=== PATIENT | male | born 1975 | race Caucasian/White ===

== ENCOUNTER 2024-11-09 10:53 | Observation (INO) | payer BC ==
--- NOTE | 2024-11-09 11:37 | ED ---
Abdominal Pain HPI <Vahe Palomares - Last Filed: 11/09/24 16:36> - General Source: patient, RN notes reviewed Mode of arrival: ambulatory Limitations: no limitations - History of Present Illness MD Complaint: abdominal pain <Lolis Mccall - Last Filed: 11/09/24 19:24> - General Chief Complaint: Abdominal Pain Stated Complaint: constipation, weakness Time Seen by Provider: 11/09/24 11:08 - History of Present Illness Initial Comments: This is a 49-year-old male who presents to the emergency department for constipation and abdominal pain. States that it started about 2 weeks ago. He has not had what he would consider a normal bowel movement in about 10 days. 3 to 4 days ago he started to become nauseous anytime he eats. Also reports generalized pain in the mid to lower abdomen. Denies any history of constipation like this in the past. He has tried [id number] medications without any relief. Patient noted to be hypoxic on room air in triage. Patient states that for the last 4 months he has been dealing with intermittent bouts of shortness of breath, but has never been evaluated for it or had his oxygen level checked. (Lolis Mccall) - Related Data Home Medications Medication Instructions Recorded Confirmed No Known Home Medications 11/09/24 11/09/24 Allergies Allergy/AdvReac Type Severity Reaction Status Date / Time No Known Allergies Allergy Verified 11/09/24 16:04 Review of Systems ROS Other: All systems not noted in ROS Statement are negative. <Vahe Palomares - Last Filed: 11/09/24 16:36> ROS Other: All systems not noted in ROS Statement are negative. <Lolis Mccall - Last Filed: 11/09/24 19:24> ROS Statement: Those systems with pertinent positive or pertinent negative responses have been documented in the HPI. Past Medical History Past Medical History: No Reported History History of Any Multi-Drug Resistant Organisms: None Reported Past Surgical History: Cholecystectomy Past Psychological History: No Psychological Hx Reported Smoking Status: Former smoker Past Alcohol Use History: None Reported Past Drug Use History: Marijuana <Lolis Mccall - Last Filed: 11/09/24 19:24> General Exam Limitations: no limitations General appearance: alert, in no apparent distress Head exam: Present: atraumatic, normocephalic, normal inspection Respiratory exam: Present: normal lung sounds bilaterally. Absent: respiratory distress, wheezes, rales, rhonchi, stridor Cardiovascular Exam: Present: regular rate, normal rhythm, normal heart sounds. Absent: systolic murmur, diastolic murmur, rubs, gallop, clicks GI/Abdominal exam: Present: soft, tenderness (generalized), normal bowel sounds. Absent: distended Neurological exam: Present: alert, oriented X3, CN II-XII intact Psychiatric exam: Present: normal affect, normal mood Skin exam: Present: warm, dry, intact, normal color. Absent: rash <Lolis Mccall - Last Filed: 11/09/24 19:24> Course Vital Signs 11/09/24 11/09/24 11/09/24 10:57 14:18 15:38 Temperature 97.5 F L Pulse Rate 95 73 84 Respiratory 16 18 16 Rate Blood Pressure 161/80 135/80 O2 Sat by Pulse 87 L 92 L Oximetry 11/09/24 11/09/24 11/09/24 15:48 16:21 17:49 Temperature Pulse Rate 85 76 81 Respiratory 18 18 20 Rate Blood Pressure 144/91 144/82 O2 Sat by Pulse 92 L 92 L Oximetry Medical Decision Making - Lab Data Result diagrams: 11/09/24 12:10 11/09/24 12:10 <Vahe Palomares - Last Filed: 11/09/24 16:36> - Lab Data Result diagrams: 11/09/24 17:46 11/09/24 17:46 - Radiology Data Radiology results: report reviewed, image reviewed <Lolis Mccall - Last Filed: 11/09/24 19:24> - Medical Decision Making This is a 49-year-old male who presents to the emergency department for abdominal pain and shortness of breath. Was pt. sent in by a medical professional or institution? @ -No Did you speak to anyone other than the patient for history? @ -No Did you review nursing and triage notes? @ -Yes, and I agree, it is accurate with regards to the patient's symptoms. Were old charts reviewed? @ -No Differential Diagnosis? @ -Differential Dyspnea: Coronary syndrome, arrhythmia, tamponade, asthma, COPD, pulmonary embolism, pneumonia, pneumothorax, pulmonary effusion, anaphylaxis, diabetic ketoacidosis, flailed chest, pulmonary contusion, diaphragmatic rupture, anemia, neuromuscular, this is not meant to be an all-inclusive list. EKG interpreted by me (3pts min.)? @ -EKG interpreted by me demonstrating the following: Sinus rhythm. Ventricular rate 81 bpm, IA interval 193 ms, QRS duration 91 ms, QTc 408 ms. X-rays interpreted by me (1pt min.)? @ -Chest x-ray obtained, my interpretation identifies no localized consolidations or infiltrates. KUB x-ray obtained. No interpretation identifies no dilation of the bowel loops. CT interpreted by me (1pt min.)? @ -CTA of the chest obtained. My interpretation identifies no evidence of a pulmonary embolus. U/S interpreted by me (1pt. min.)? @ -Not obtained What testing was considered but not performed? (CT, X-rays, U/S, labs)? Why? @ -CT scan of the abdomen and pelvis. However, patient would not fit in the CT scan machine. What meds were considered but not given? Why? @ -None Did you discuss the management of the patient with other professionals? @ -Yes, Dr. Mejia, who accepts the patient for admission. Did you reconcile home meds? @ -Yes Was smoking cessation discussed for >3mins.? @ -No Was critical care preformed (if so, how long)? @ -No Were there social determinants of health that impacted care today? How? (Homelessness, low income, unemployed, alcoholism, drug addiction, transportation, low edu. Level, literacy, decrease access to med. care, long-term, rehab)? @ -No Was there de-escalation of care discussed even if they declined? (Discuss DNR or withdrawal of care, Hospice)? @ -No What co-morbidities impacted this encounter? (DM, HTN, Smoking, COPD, CAD, Cancer, CVA, Hep., AIDS, mental health diagnosis, sleep apnea, morbid obesity)? @ -None Was patient admitted / discharged? @ -Admitted. On arrival patient had an oxygen saturation of 87% on room air, however he was not feeling particularly short of breath. Nasal cannula was subsequently applied. Lab work demonstrates mild leukocytosis. D-dimer elevated at 2.43. Chest x-ray and KUB x-ray obtained revealing no acute pr ocess. CTA of the chest that obtained due to his symptoms with elevated D- dimer. No evidence of a pulmonary embolus was identified, however evaluation was limited due to patient's body habitus. I had intended on getting a CT scan of the abdomen and pelvis as well due to his abdominal pain with constipation. However, he would not fit into the CT scan machine with his body habitus. The cause of his hypoxia is not entirely clear. ABG does suggest some retention. He has never been diagnosed with COPD, however that is a possibility. He is a previous smoker. Patient admitted to medicine for further evaluation and management of hypoxia. Consult placed for pulmonology. Case discussed with ED attending Dr. Avalos. Undiagnosed new problem with uncertain prognosis? @ -None Drug Therapy requiring intensive monitoring for toxicity (Heparin, Nitro, Insu jevon, Cardizem)? @ -None Were any procedures done? @ -None Diagnosis/symptom? @ -Hypoxia, constipation Acute, or Chronic, or Acute on Chronic? @ -Acute Uncomplicated (without systemic symptoms) or Complicated (systemic symptoms)? @ -Complicated Side effects of treatment? @ -None Exacerbation, Progression, or Severe Exacerbation] @ -Not applicable Poses a threat to life or bodily function? @ -Yes, can lead to respiratory failure and . (Lolis Mccall) - Lab Data Lab Results 11/09/24 11/09/24 11/09/24 Range/Units 12:10 12:10 12:10 WBC 12.3 H (3.8-10.6) k/uL RBC 5.82 (4.30-5.90) m/uL Hgb 16.8 (13.0-17.5) gm/dL Hct 54.5 H (39.0-53.0) % MCV 93.8 (80.0-100.0) fL MCH 28.9 (25.0-35.0) pg MCHC 30.8 L (31.0-37.0) g/dL RDW 15.7 H (11.5-15.5) % Plt Count 168 (150-450) k/uL MPV 7.8 Neutrophils % 82 % Lymphocytes % 10 % Monocytes % 5 % Eosinophils % 1 % Basophils % 0 % Neutrophils # 10.2 H (1.3-7.7) k/uL Lymphocytes # 1.3 (1.0-4.8) k/uL Monocytes # 0.7 (0-1.0) k/uL Eosinophils # 0.1 (0-0.7) k/uL Basophils # 0.0 (0-0.2) k/uL Hypochromasia Marked D-Dimer 2.43 H (<0.60) mg/L FEU Sample Site ABG pH (7.35-7.45) ABG pCO2 (35-45) mmHg ABG pO2 (83-108) mmHg ABG HCO3 (21-25) mmol/L ABG Total CO2 (19-24) mmol/L ABG O2 Saturation (94-97) % ABG Base Excess mmol/L Iker Test Hemoglobin (13.0-17.5) gm/dL FiO2 % Sodium 133 L (137-145) mmol/L Potassium 5.1 (3.5-5.1) mmol/L Chloride 96 L (98-107) mmol/L Carbon Dioxide 34 H (22-30) mmol/L Anion Gap 3 mmol/L BUN 28 H (9-20) mg/dL Creatinine 0.93 (0.66-1.25) mg/dL Est GFR (CKD-EPI)AfAm >90 (>60 ml/min/1.73 sqM) Est GFR (CKD-EPI)NonAf >90 (>60 ml/min/1.73 sqM) Glucose 97 (74-99) mg/dL Plasma Lactic Acid Ja (0.7-2.0) mmol/L Calcium 8.0 L (8.4-10.2) mg/dL Total Bilirubin 1.3 (0.2-1.3) mg/dL AST 46 (17-59) U/L ALT 112 H (4-49) U/L Alkaline Phosphatase 76 (38-126) U/L Troponin I (0.000-0.034) ng/mL Total Protein 6.1 L (6.3-8.2) g/dL Albumin 3.5 (3.5-5.0) g/dL Amylase 33 (30-110) U/L Lipase 109 (23-300) U/L Influenza Type A (PCR) (Not Detectd) Influenza Type B (PCR) (Not Detectd) RSV (PCR) (Not Detectd) SARS-CoV-2 (PCR) (Not Detectd) 01/01/0211/09/24 11/09/24 Range/Units 12:10 12:10 12:10 WBC (3.8-10.6) k/uL RBC (4.30-5.90) m/uL Hgb (13.0-17.5) gm/dL Hct (39.0-53.0) % MCV (80.0-100.0) fL MCH (25.0-35.0) pg MCHC (31.0-37.0) g/dL RDW (11.5-15.5) % Plt Count (150-450) k/uL MPV Neutrophils % % Lymphocytes % % Monocytes % % Eosinophils % % Basophils % % Neutrophils # (1.3-7.7) k/uL Lymphocytes # (1.0-4.8) k/uL Monocytes # (0-1.0) k/uL Eosinophils # (0-0.7) k/uL Basophils # (0-0.2) k/uL Hypochromasia D-Dimer (<0.60) mg/L FEU Sample Site ABG pH (7.35-7.45) ABG pCO2 (35-45) mmHg ABG pO2 (83-108) mmHg ABG HCO3 (21-25) mmol/L ABG Total CO2 (19-24) mmol/L ABG O2 Saturation (94-97) % ABG Base Excess mmol/L Iker Test Hemoglobin (13.0-17.5) gm/dL FiO2 % Sodium (137-145) mmol/L Potassium (3.5-5.1) mmol/L Chloride (98-107) mmol/L Carbon Dioxide (22-30) mmol/L Anion Gap mmol/L BUN (9-20) mg/dL Creatinine (0.66-1.25) mg/dL Est GFR (CKD-EPI)AfAm (>60 ml/min/1.73 sqM) Est GFR (CKD-EPI)NonAf (>60 ml/min/1.73 sqM) Glucose (74-99) mg/dL Plasma Lactic Acid Ja 1.1 (0.7-2.0) mmol/L Calcium (8.4-10.2) mg/dL Total Bilirubin (0.2-1.3) mg/dL AST (17-59) U/L ALT (4-49) U/L Alkaline Phosphatase (38-126) U/L Troponin I 0.024 (0.000-0.034) ng/mL Total Protein (6.3-8.2) g/dL Albumin (3.5-5.0) g/dL Amylase (30-110) U/L Lipase (23-300) U/L Influenza Type A (PCR) Not Detected (Not Detectd) Influenza Type B (PCR) Not Detected (Not Detectd) RSV (PCR) Not Detected (Not Detectd) SARS-CoV-2 (PCR) Not Detected (Not Detectd) 11/09/24 11/09/24 Range/Units 15:38 16:17 WBC (3.8-10.6) k/uL RBC (4.30-5.90) m/uL Hgb (13.0-17.5) gm/dL Hct (39.0-53.0) % MCV (80.0-100.0) fL MCH (25.0-35.0) pg MCHC (31.0-37.0) g/dL RDW (11.5-15.5) % Plt Count (150-450) k/uL MPV Neutrophils % % Lymphocytes % % Monocytes % % Eosinophils % % Basophils % % Neutrophils # (1.3-7.7) k/uL Lymphocytes # (1.0-4.8) k/uL Monocytes # (0-1.0) k/uL Eosinophils # (0-0.7) k/uL Basophils # (0-0.2) k/uL Hypochromasia D-Dimer (<0.60) mg/L FEU Sample Site r rad ABG pH 7.39 (7.35-7.45) ABG pCO2 61 H (35-45) mmHg ABG pO2 63 L (83-108) mmHg ABG HCO3 37 H (21-25) mmol/L ABG Total CO2 39 H (19-24) mmol/L ABG O2 Saturation 91.6 L (94-97) % ABG Base Excess 8.7 mmol/L Iker Test Yes Hemoglobin 16.6 (13.0-17.5) gm/dL FiO2 28 % Sodium (137-145) mmol/L Potassium (3.5-5.1) mmol/L Chloride (98-107) mmol/L Carbon Dioxide (22-30) mmol/L Anion Gap mmol/L BUN (9-20) mg/dL Creatinine (0.66-1.25) mg/dL Est GFR (CKD-EPI)AfAm (>60 ml/min/1.73 sqM) Est GFR (CKD-EPI)NonAf (>60 ml/min/1.73 sqM) Glucose (74-99) mg/dL Plasma Lactic Acid Ja (0.7-2.0) mmol/L Calcium (8.4-10.2) mg/dL Total Bilirubin (0.2-1.3) mg/dL AST (17-59) U/L ALT (4-49) U/L Alkaline Phosphatase (38-126) U/L Troponin I 0.020 (0.000-0.034) ng/mL Total Protein (6.3-8.2) g/dL Albumin (3.5-5.0) g/dL Amylase (30-110) U/L Lipase (23-300) U/L Influenza Type A (PCR) (Not Detectd) Influenza Type B (PCR) (Not Detectd) RSV (PCR) (Not Detectd) SARS-CoV-2 (PCR) (Not Detectd) Disposition <Vahe Palomares - Last Filed: 11/09/24 16:36> <Lolis Mccall - Last Filed: 11/09/24 19:24> Clinical Impression: Hypoxia, Constipation Disposition: ADMITTED IP TO THIS HOSP
[2024-11-09 12:29] LABS: Basophils % (A) 0 %; Eosinophils # (A) 0.1 k/uL (0-0.7); Eosinophils % (A) 1 %; HCT 54.5 % (39.0-53.0); HGB 16.8 gm/dL (13.0-17.5); Hypochromasia Marked; Lymphocytes # (A) 1.3 k/uL (1.0-4.8); Lymphocytes % (A) 10 %; MCH 28.9 pg (25.0-35.0); MCHC 30.8 g/dL (31.0-37.0); MCV 93.8 fL (80.0-100.0); Mean Platelet Volume 7.8; Monocytes # (A) 0.7 k/uL (0-1.0); Monocytes % (A) 5 %; Neutrophils # (A) 10.2 k/uL (1.3-7.7); Neutrophils % (A) 82 %; Platelet Count 168 k/uL (150-450); RBC 5.82 m/uL (4.30-5.90); RDW 15.7 % (11.5-15.5); WBC 12.3 k/uL (3.8-10.6)
[2024-11-09 12:33] LABS: ALT 112 U/L (4-49); AST 46 U/L (17-59); African American GFR (CKD) >90 (>60 ml/min/1.73 sqM); Albumin 3.5 g/dL (3.5-5.0); Alkaline Phosphatase 76 U/L (38-126); Amylase 33 U/L (30-110); Anion Gap 3 mmol/L; Blood Urea Nitrogen 28 mg/dL (9-20); Carbon Dioxide 34 mmol/L (22-30); Chloride 96 mmol/L (98-107); Glucose 97 mg/dL (74-99); Lipase 109 U/L (23-300); Non-African American GFR(CKD) >90 (>60 ml/min/1.73 sqM); Potassium 5.1 mmol/L (3.5-5.1); Sodium 133 mmol/L (137-145); Total Bilirubin 1.3 mg/dL (0.2-1.3); Total Protein 6.1 g/dL (6.3-8.2)
--- NOTE | 2024-11-09 13:03 | XR ---
EXAMINATION TYPE: XR chest 2V DATE OF EXAM: 11/09/2024 12:37 PM COMPARISON: None. CLINICAL INDICATION: Male, 49 years old with history of Hypoxia, TECHNIQUE: XR chest 2V view(s) obtained. FINDINGS: The heart size is normal. The pulmonary vasculature is normal. The lungs are clear. IMPRESSION: 1. No acute pulmonary process. [facility], , 11/09/2024 1:01 PM
--- NOTE | 2024-11-09 13:07 | XR ---
EXAMINATION TYPE: XR KUB DATE OF EXAM: 11/09/2024 12:36 PM COMPARISON: None. CLINICAL INDICATION: Male, 49 years old with history of Abdominal pain, constipation, TECHNIQUE: XR KUB view(s) obtained. FINDINGS: There is a normal bowel gas pattern. No free air is evident. No differential air-fluid levels are brad dent. No significant fecal retention Psoas margins are normal. No organomegaly is present. IMPRESSION: 1. Nonspecific abdomen [facility], , 11/09/2024 1:05 PM
--- NOTE | 2024-11-09 13:55 | CT ---
EXAMINATION TYPE: CT chest angio for PE CT DLP: 1169.9 mGycm, Automated exposure control for dose reduction was used. DATE OF EXAM: 11/09/2024 1:45 PM COMPARISON: Chest radiograph from same day. CLINICAL INDICATION:Male, 49 years old with history of RIZWAN, elevated d-dimer; RIZWAN, positive dimer TECHNIQUE/CONTRAST: CTA scan of the thorax is performed with IV Contrast, patient injected with 100 mL of Isovue 370, pul monary embolism protocol. MIP images are created and reviewed. FINDINGS: Limited examination due to patient body habitus. Pulmonary Artery: There is no evidence for a central filling defect within the pulmonary vasculature to suggest acute pulmonary embolism. Limited evaluation of the segmental and subsegmental branches se condary to bolus timing. The pulmonary artery is dilated measuring up to 4.0 cm. Lungs/Pleura: No evidence of focal consolidation, pleural effusion or pneumothorax. Minimal bilateral lower lobe dependent subsegmental atelectasis. Airway: Large airways are patent. Heart: The heart is mildly enlarged for size.. No pericardial effusion. Vasculature: No evidence of aortic aneurysm. Mediastinum: No gross evidence of adenopathy. Musculoskeletal: Mild degenerative disc disease changes are present throughout the thoracolumbar spin e. No acute osseous abnormality. Soft Tissues: Unremarkable. Lower neck: No significant findings. Upper Abdomen: Diffuse low-attenuation to the liver parenchyma. Surgical clips within the visualized gallbladder fossa. IMPRESSION: 1. No evidence of central pulmonary embolism. Limited evaluation of the segmental and subsegmental b ranches due to patient's body habitus. Consider nuclear medicine VQ scan if there is continuing clini janel concern. 2. Dilated main pulmonary suggestive of pulmonary hypertension. 3. Cardiomegaly. 4. Hepatic steatosis. [facility], , 11/09/2024 1:52 PM
[2024-11-09] MEDS: IPRATROPIUM-ALBUTEROL 3 ML NEB INHALATION STA (15:32)
[2024-11-09 15:42] LABS: ABG Base Excess 8.7 mmol/L; ABG HCO3 37 mmol/L (21-25); ABG Oxygen Saturation 91.6 % (94-97); ABG PCO2 61 mmHg (35-45); ABG PH 7.39 (7.35-7.45); ABG PO2 63 mmHg (83-108); ABG TCO2 39 mmol/L (19-24); Allen Test Performed? Yes
[2024-11-09] MEDS ORDERED: KETOROLAC 15 MG/ML 1 ML VIAL IVP PRN (16:12)
[2024-11-09] MEDS ORDERED: NALOXONE 0.4 MG/ML 1 ML VIAL IV PRN (16:12)
[2024-11-09] MEDS ORDERED: IBUPROFEN 400 MG TAB PO PRN (16:12)
[2024-11-09] MEDS ORDERED: ACETAMINOPHEN TAB 325 MG TAB PO PRN (16:12)
[2024-11-09] MEDS ORDERED: ONDANSETRON 4 MG/2 ML VIAL IVP PRN (16:12)
--- NOTE | 2024-11-09 16:57 | P.HPIM ---
History of Present Illness H&P Date: 11/09/24 Patient is a 49-year-old male with past medical history of obesity, cholecystectomy, who presents with concern of constipation and ongoing shortness of breath. Patient states that he does not have significant past medical history, he was told by his dentist that his blood pressure was elevated but no diagnosis of hypertension. He states that he has been constipated for the past several weeks, last BM 10 days ago, prior to that he has been having daily BMs. No pain with defecation, no blood in stool, no nausea, vomiting, abdominal discomfort is getting better. Shortness of breath has been ongoing for the past 4 months or so, he states that it gets worse when he smokes marijuana that he does daily, he used to smoke tobacco but quit 20 years ago. He has sedentary lifestyle, he gained 50 pounds in the past 1-1/2-year. He denies being diagnosed with hyperlipidemia or hypothyroidism or diabetes. He denies history of blood clots, including family history of blood clots, no pers onal cancer history., He did mention that he has bilateral lower extremity swelling left more than right. No autoimmune conditions as well. He also mentioned that he slept for 36 hours recently and did not feel refreshed, he was also falling asleep at work which is very concerning to him. In the ER patient was hypertensive BP 160/80, hypoxic 87% on room air, was placed on nasal cannula 2 L, heart rate initially elevated in the 90s, afebrile. Lab work significant for mild leukocytosis at 12.3, hemoglobin high normal 16.8, platelet count normal, D-dimer elevated 2.43, ABG with normal pH, hypercapnia and hypoxia pCO2 61, pO2 63, hyponatremic 133, normal creatinine and GFR, lactic acid normal, troponin negative. Viral panel negative. EKG showed sinus rhythm, RBBB pattern, no ST elevation. CTA chest was done and showed no evidence of central PE although evaluation was limited for the segmental and subsegmental branches, consider nuclear medicine VQ scan if continued clinical concern. Signs of pulmonary hypertension, cardiomegaly, hepatic steatosis. Abdominal x-ray showed no abnormalities. Patient is being admitted for evaluation of acute hypoxic hypercapnic respiratory failure, pulmonology consult, constipation evaluation. Pertinent positives and negatives as discussed in HPI, a complete review of systems was performed and all other systems are negative. Patient seen and examined at bedside. [] Vital signs reviewed General: nontoxic, no distress, appears at stated age, morbidly obese Derm: warm, dry Head: atraumatic, normocephalic, symmetric Eyes: EOMI, no lid lag, anicteric sclera, pupils equal round reactive to light ENT: Nose and ears atraumatic Neck: No thyromegaly, supple Mouth: no lip lesion, mucus membranes moist Cardiovascular: S1S2 reg, no murmur, no edema Lungs: clear to auscultation bilateral, no rhonchi, no rales, no wheeze, no accessory muscle use Abdominal: Exam limited due to body habitus, soft, nontender to palpation, no guarding, no appreciable organomegaly Ext: no gross muscle atrophy, muscle strength muscle strength 5 out of 5 in all 4 extremities, lateral lower extremity pitting edema Neuro: CN II-XII grossly intact Psych: Alert, oriented, appropriate affect Assessment/Plan: Acute hypoxic hypercapnic respiratory failure Concern for obesity hypoventilation syndrome Elevated D-dimer, CTA negative for central PE Lateral lower extremity edema, rule out DVT Morbid obesity BMI 43 Leukocytosis Hyponatremia -Pulmonology consulted -Bilateral lower extremity venous duplex -Workup for metabolic syndrome: A1c, lipid panel, TSH -TTE -BNP ordered and pending -1 dose of IV Lasix 40 once -Bipap, repeat ABG -Patient will need sleep study as outpatient -Recommend weight loss -Counseled on marijuana smoking cessation Constipation -Bowel sounds present, bowel regimen ordered -monitor BMP Elevated blood pressure readings without diagnosis of hypertension -Monitor blood pressure, patient is very likely to have hypertension, may need to be started on antihypertensive -Follow-up TTE The patient is admitted with an anticipated [greater] than 2 midnight stay as [inpatient/observation] status for evaluation of acute hypoxic hypercapnic respiratory failure, constipation]. DVT prophylaxis: lovenox Anticipated discharge date: 24 to [address] home A total of 40 minutes was spent on the care of this complex patient more than 50% of the time was spent in counseling and care coordination. Past Medical History Past Medical History: No Reported History History of Any Multi-Drug Resistant Organisms: None Reported Past Surgical History: Cholecystectomy Past Psychological History: No Psychological Hx Reported Smoking Status: Former smoker Past Alcohol Use History: None Reported Past Drug Use History: Marijuana Medications and Allergies Home Medications Medication Instructions Recorded Confirmed Type No Known Home Medications 11/09/24 11/09/24 History Allergies Allergy/AdvReac Type Severity Reaction Status Date / Time No Known Allergies Allergy Verified 11/09/24 16:04 Physical Exam Vitals: Vital Signs Temp Pulse Resp BP Pulse Ox 11/09/24 16:21 76 18 144/91 92 L 11/09/24 15:48 85 18 11/09/24 15:38 84 16 11/09/24 14:18 73 18 135/80 92 L 11/09/24 10:57 97.5 F L 95 16 161/80 87 L Intake and Output 11/09/24 11/09/24 11/09/24 06:59 14:59 22:59 Other: Weight 158.757 kg Results CBC & Chem 7: 11/09/24 12:10 11/09/24 12:10 Labs: Abnormal Lab Results - Last 24 Hours (Table) 11/09/24 11/09/24 11/09/24 Range/Units 12:10 12:10 12:10 WBC 12.3 H (3.8-10.6) k/uL Hct 54.5 H (39.0-53.0) % MCHC 30.8 L (31.0-37.0) g/dL RDW 15.7 H (11.5-15.5) % Neutrophils # 10.2 H (1.3-7.7) k/uL D-Dimer 2.43 H (<0.60) mg/L FEU ABG pCO2 (35-45) mmHg ABG pO2 (83-108) mmHg ABG HCO3 (21-25) mmol/L ABG Total CO2 (19-24) mmol/L ABG O2 Saturation (94-97) % Sodium 133 L (137-145) mmol/L Chloride 96 L (98-107) mmol/L Carbon Dioxide 34 H (22-30) mmol/L BUN 28 H (9-20) mg/dL Calcium 8.0 L (8.4-10.2) mg/dL ALT 112 H (4-49) U/L Total Protein 6.1 L (6.3-8.2) g/dL 11/09/24 Range/Units 15:38 WBC (3.8-10.6) k/uL Hct (39.0-53.0) % MCHC (31.0-37.0) g/dL RDW (11.5-15.5) % Neutrophils # (1.3-7.7) k/uL D-Dimer (<0.60) mg/L FEU ABG pCO2 61 H (35-45) mmHg ABG pO2 63 L (83-108) mmHg ABG HCO3 37 H (21-25) mmol/L ABG Total CO2 39 H (19-24) mmol/L ABG O2 Saturation 91.6 L (94-97) % Sodium (137-145) mmol/L Chloride (98-107) mmol/L Carbon Dioxide (22-30) mmol/L BUN (9-20) mg/dL Calcium (8.4-10.2) mg/dL ALT (4-49) U/L Total Protein (6.3-8.2) g/dL
[2024-11-09] MEDS: bisacodyL 5 MG TABLET.DR PO SCH (17:45)
[2024-11-09] MEDS: polyethylene glycoL 3350 17 GM POWD.PACK PO SCH (17:46)
--- NOTE | 2024-11-09 17:55 | US ---
EXAMINATION TYPE: US venous doppler duplex LE BI DATE OF EXAM: 11/09/2024 5:45 PM COMPARISON: CT and XR 11/09/24 CLINICAL INDICATION: Male, 49 years old with history of swelling, elevated D dimer; Patient states le g swelling, Pain TECHNIQUE: The lower extremity deep venous system is examined utilizing real time linear array sonog efrem with graded compression, color doppler sonography, and spectral doppler. SIDE PERFORMED: Bilateral FINDINGS: VESSELS IMAGED: Common Femoral Vein Deep Femoral Vein Greater Saphenous Vein * Femoral Vein Popliteal Vein Small Saphenous Vein * Proximal Calf Veins (* superficial vessels) Suboptimal exam due to patient body habitus Right Leg: Appears negative for dvt as best visualized, Color Doppler imaging shows patency of the v essels. Spectral waveforms are within normal limits. Left Leg: Appears negative for dvt as best visualized, Color Doppler imaging shows patency of the ve ssels. Spectral waveforms are within normal limits. *bilateral distal femoral vein difficult to compress, however color flow and spectral waveforms seen within IMPRESSION: No ultrasound evidence for deep venous thrombosis. [facility], , 11/09/2024 5:53 PM
[2024-11-09 18:14] LABS: Basophils % (A) 0 %; Eosinophils # (A) 0.1 k/uL (0-0.7); Eosinophils % (A) 1 %; HGB 17.1 gm/dL (13.0-17.5); Hypochromasia Marked; Lymphocytes # (A) 1.3 k/uL (1.0-4.8); Lymphocytes % (A) 11 %; MCH 29.3 pg (25.0-35.0); MCV 94.5 fL (80.0-100.0); Mean Platelet Volume 7.6; Monocytes # (A) 0.7 k/uL (0-1.0); Monocytes % (A) 6 %; Neutrophils # (A) 9.3 k/uL (1.3-7.7); Neutrophils % (A) 80 %; Platelet Count 146 k/uL (150-450); RBC 5.85 m/uL (4.30-5.90); RDW 15.7 % (11.5-15.5); WBC 11.6 k/uL (3.8-10.6)
[2024-11-09 18:25] LABS: African American GFR (CKD) >90 (>60 ml/min/1.73 sqM); Anion Gap 7 mmol/L; Blood Urea Nitrogen 24 mg/dL (9-20); Calcium 8.2 mg/dL (8.4-10.2); Carbon Dioxide 32 mmol/L (22-30); Chloride 95 mmol/L (98-107); Glucose 86 mg/dL (74-99); Non-African American GFR(CKD) 88 (>60 ml/min/1.73 sqM); Potassium 4.8 mmol/L (3.5-5.1); Sodium 134 mmol/L (137-145)
[2024-11-09 18:32] LABS: NT-Pro-B-Type Natriuretic Pept 3670 pg/mL
[2024-11-09 18:53] LABS: HCT 55.2 % (39.0-53.0)
--- NOTE | 2024-11-10 00:57 | P.CNPUL ---
History of Present Illness Consult date: 11/10/24 Requesting physician: Lolis Mccall Reason for consult: hypoxemia Chief complaint: Constipation History of present illness: Patient is a 49-year-old male without any known medical history and does not take any medications at home. He does not have a primary care provider. Lives in [place]. He presented to the emergency department last night with a chief complaint of constipation with associated abdominal discomfort. States his last normal bowel movement was approximately 2 weeks ago. Associated abdominal tenderness localized to the lower quadrants. Admits intermittent bouts of naus ea without emesis. While being triaged in the ED was noted to be hypoxic. SpO2 87% on room air oxygen. He was placed on 2 L/min nasal cannula. A pulmonary consult was placed for this reason. Chest x-ray showing normal cardiac silhouette, film is likely underpenetrated due to patient's body habitus. Patient had elevated D-dimer, CT angio protocol was performed which did not show any filling defects or evidence of pulmonary embolism. There was a dilated pulmonary trunk measuring 4 cm. No acute parenchymal process. Patient also reported unilateral left lower extremity swelling. Venous Doppler of the bilateral lower extremities unremarkable for DVT. CBC: WBC count 11.6, hemoglobin 17.1, hematocrit 55.2, platelets 146. CMP: Sodium 134, potassium 4.8, chloride 95, serum bicarb 32, BUN 24, creatinine 0.99, glucose 86. Troponins 0.02 and 0.018 respectively. NT proBNP was 3670. EKG: Normal sinus rhythm, incomplete RBBB pattern, no acute ischemic changes. Viral screen was negative for influenza, RSV, COVID. ABG drawn in the ED, showing a component hypoxia with likely chronic hypercapnic respiratory failure. The patient was placed on BiPAP earlier with settings 10/5 and FiO2 of 30%. On my initial evaluation, patient remains in the ED. Currently, he is on BiPAP with previous mention settings. Achieving tidal volumes of around 450, rate is nontachypneic. He is awake and alert. Nondistressed. No signs of CO2 narcosis. Patient states that over the last 4 months he has had exertional dyspnea. Carries brief tobacco smoking history, quit smoking over 20 years ago. He continues to smoke occasional marijuana. Denies history of COPD or asthma. Denies coughing. Denies infectious-like symptoms. Denies any chest pain, heart palpitations, orthopnea, PND. Endorses excessive daytime sleepiness. 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 He gets adequate amounts of sleep at night, over 8 hours, and remains tired on awakening. States he recently slept over 36 hours on his day off and still was tired on awakening. He lives alone, but has been told he has severe snoring. He is morbidly obese, with a BMI of 43.7 kg/m. Increased neck circumference. Mallampati score 3. Has never had a sleep study in the past. As stated above, he has noted some increased swelling of his left lower extremity. Denies any history of heart failure. As far as his constipation, he has received a dose of MiraLAX, had small bowel movement earlier. Abdominal tenderness is improved. Current vitals: Afebrile, heart rate 80 bpm, blood pressure 127/81 mmHg, respiratory rate nontachypneic, SpO2 93% on BiPAP Review of Systems Constitutional: Reports fatigue, Reports lethargy, Reports weight gain, Denies chills, Denies fever, Denies poor appetite, Denies weight loss Ears, nose, mouth and throat: Denies headache, Denies nasal congestion, Denies nasal discharge, Denies post-nasal drip, Denies sinus pain, Denies sinus pressure, Denies sore throat Cardiovascular: Reports leg edema, Denies chest pain, Denies lightheadedness, Denies orthopnea, Denies palpitations, Denies paroxysmal nocturnal dyspnea, Denies syncope Respiratory: Reports dyspnea, Reports snoring, Denies congestion, Denies cough, Denies hemoptysis, Denies respiratory infections, Denies sleep apnea, Denies wheezing Gastrointestinal: Reports abdominal pain, Reports change in bowel habits, Reports constipation, Reports nausea, Denies diarrhea, Denies loss of appetite, Denies vomiting Genitourinary: Denies dysuria Musculoskeletal: Denies limitation of motion Integumentary: Denies rash Neurological: Denies seizures, Denies syncope Psychiatric: Denies anxiety, Denies depression Past Medical History Past Medical History: No Reported History History of Any Multi-Drug Resistant Organisms: None Reported Past Surgical History: Cholecystectomy Past Psychological History: No Psychological Hx Reported Smoking Status: Former smoker Past Alcohol Use History: None Reported Past Drug Use History: Marijuana Medications and Allergies Home Medications Medication Instructions Recorded Confirmed Type No Known Home Medications 11/09/24 11/09/24 History Allergies Allergy/AdvReac Type Severity Reaction Status Date / Time No Known Allergies Allergy Verified 11/09/24 16:04 Physical Exam Vitals: Vital Signs Temp Pulse Resp BP Pulse Ox FiO2 11/09/24 23:54 80 93 L 11/09/24 23:17 30 11/09/24 22:00 75 18 127/81 92 L 11/09/24 21:23 84 18 134/95 93 L 11/09/24 19:39 77 20 136/90 92 L 11/09/24 17:49 81 20 144/82 92 L 11/09/24 16:21 76 18 144/91 92 L 11/09/24 15:48 85 18 11/09/24 15:38 84 16 11/09/24 14:18 73 18 135/80 92 L 11/09/24 10:57 97.5 F L 95 16 161/80 87 L Intake and Output 11/09/24 11/09/24 11/10/24 14:59 22:59 06:59 Other: Weight 158.757 kg GENERAL EXAM: Alert, morbidly obese 49-year-old male, on BiPAP, nondistressed, no signs of CO2 narcosis HEAD: Normocephalic and atraumatic EYES: Normal reaction of pupils, equal size. NOSE: Clear with pink turbinates. THROAT: No erythema or exudates. Mallampati score 3. NECK: No masses, no JVD. Increased neck circumference. CHEST: No chest wall deformity. LUNGS: Equal air entry with no crackles, wheeze, rhonchi or dullness. On BiPAP with settings 10/5 and FiO2 30%. Achieving tidal volumes of 450 mL, nontachypneic. No respiratory distress noted. No accessory muscle use. No conversational dyspnea. CVS: S1 and S2 normal with no audible murmur, regular rhythm. No extra heart sounds ABDOMEN: Obese abdomen, active bowel sounds, no hepatosplenomegaly or masses, no guarding or rigidity. SPINE: No scoliosis or deformity SKIN: No rashes CENTRAL NERVOUS SYSTEM: No focal deficits, tone is normal in all 4 extremities. EXTREMITIES: There is mild nonpitting lower extremity edema bilateral. No clubbing or cyanosis. Peripheral pulses are intact. Results - Laboratory Findings CBC and BMP: 11/09/24 17:46 11/09/24 17:46 ABG ABG pH 7.39 (7.35-7.45) 11/09/24 15:38 ABG pCO2 61 mmHg (35-45) H 11/09/24 15:38 ABG pO2 63 mmHg (83-108) L 11/09/24 15:38 ABG O2 Saturation 91.6 % (94-97) L 11/09/24 15:38 PT/INR, D-dimer D-Dimer 2.43 mg/L FEU (<0.60) H 11/09/24 12:10 Abnormal lab findings: Abnormal Labs 11/09/24 11/09/24 11/09/24 12:10 12:10 12:10 WBC 12.3 H Hct 54.5 H MCHC 30.8 L RDW 15.7 H Plt Count Neutrophils # 10.2 H D-Dimer 2.43 H ABG pCO2 ABG pO2 ABG HCO3 ABG Total CO2 ABG O2 Saturation Sodium 133 L Chloride 96 L Carbon Dioxide 34 H BUN 28 H Calcium 8.0 L ALT 112 H Total Protein 6.1 L 11/09/24 11/09/24 11/09/24 15:38 17:46 17:46 WBC 11.6 H Hct 55.2 H MCHC RDW 15.7 H Plt Count 146 L Neutrophils # 9.3 H D-Dimer ABG pCO2 61 H ABG pO2 63 L ABG HCO3 37 H ABG Total CO2 39 H ABG O2 Saturation 91.6 L Sodium 134 L Chloride 95 L Carbon Dioxide 32 H BUN 24 H Calcium 8.2 L ALT Total Protein - Diagnostic Findings Chest x-ray: image reviewed CT scan - chest: image reviewed Assessment and Plan Assessment: Acute hypoxemic respiratory failure, likely with a component of chronic hypercapnic respiratory failure; Chest x-ray showing normal cardiac silhouette with interstitial prominence, likely underpenetrated due to patient's body habitus. NT proBNP was elevated 3670 Elevated D-dimer, chest CTA did not show any filling defects consistent with pul monary embolism. Dilated pulmonary artery trunk measuring 4 cm. No acute parenchymal process. Bilateral lower extremity edema, venous doppler of the bilateral lower extremities unremarkable for DVTs Excessive daytime sleepiness Morbid obesity, BMI of 43.7 kg/m, suspect component of obesity hypoventilation syndrome/AUNG Abdominal pain and constipation, KUB x-ray nonspecific, patient was given dose of MiraLAX earlier with small bowel movement Brief history of tobacco use, quitting over 20 years ago Current ongoing marijuana use Plan: Patient's medications, labs, and imaging reviewed Found to be hypoxic when being triaged in the ED, placed on 2 L/min nasal cannula. ABG consistent with a component of chronic hypercapnic respiratory failure No signs of CO2 narcosis Continue BiPAP at bedtime, with current settings Patient would benefit from outpatient sleep study Echocardiogram planned for the morning We will continue to follow I have personally seen and examined the patient, performed the documentation and the assessment and plan as written. Number of minutes spent on the visit:20 This dictation was produced using [employer] dictation software please excuse grammatical errors Time with Patient: Greater than 30
[2024-11-10] MEDS: ENOXAPARIN 40 MG/0.4 ML SYRINGE SQ SCH (08:46)
[2024-11-10] MEDS: PANTOPRAZOLE 40 MG/10 ML VIAL IV SCH (08:48)
[2024-11-10 09:05] LABS: Blood Urea Nitrogen 18.2 mg/dL (9.0-27.0); Carbon Dioxide 31.5 mmol/L (21.6-31.8); Chloride 98 mmol/L (96-109); Glucose 87 mg/dL (70-110); Potassium 4.7 mmol/L (3.5-5.5); Sodium 140 mmol/L (135-145)
[2024-11-10 09:19] LABS: Basophils # (A) 0.03 X 10*3/uL (0.00-0.10); Basophils % (A) 0.3 %; Eosinophils # (A) 0.04 X 10*3/uL (0.04-0.35); Eosinophils % (A) 0.4 %; HCT 55.1 % (39.6-50.0); HGB 16.3 g/dL (13.0-17.0); Lymphocytes # (A) 1.26 X 10*3/uL (0.90-5.00); Lymphocytes % (A) 11.7 %; MCH 28.4 pg (27.0-32.0); MCHC 29.6 g/dL (32.0-37.0); Mean Platelet Volume 11.1 FL (9.5-12.2); Monocytes # (A) 1.09 X 10*3/uL (0.20-1.00); Monocytes % (A) 10.1 %; NRBC Per 100 WBC 0 X 10*3/uL (0.00-0.01); Neutrophils # (A) 8.32 X 10*3/uL (1.80-7.70); Neutrophils % (A) 77.1 %; Platelet Count 133 X 10*3/uL (140-440); RBC 5.74 X 10*6/uL (4.40-5.60); RDW 16.9 % (11.5-14.5); WBC 10.78 X 10*3/uL (4.50-10.00)
[2024-11-10 13:22] LABS: Appearance,Urine Clear (Clear); Bilirubin,Urine Negative (Negative); Blood,Urine Negative (Negative); Color,Urine Light Yellow; Glucose,Urine (UA) Negative (Negative); Ketones,Urine Negative (Negative); Leukocyte Esterase,Urine Negative (Negative); Nitrite,Urine Negative (Negative); Protein,Urine Negative (Negative); Specific Gravity,Urine 1.011 (1.001-1.035)
--- NOTE | 2024-11-10 13:48 | P.PN ---
Subjective Progress Note Date: 11/10/24 Principal diagnosis: Patient is a 49-year-old male with past medical history of obesity, cholecystectomy, who presents with concern of constipation and ongoing shortness of breath. Patient states that he does not have significant past medical history, he was told by his dentist that his blood pressure was elevated but no diagnosis of hypertension. He states that he has been constipated for the past several weeks, last BM 10 days ago, prior to that he has been having daily BMs. No pain with defecation, no blood in stool, no nausea, vomiting, abdominal discomfort is getting better. Shortness of breath has been ongoing for the past 4 months or so, he states that it gets worse when he smokes marijuana that he does daily, he used to smoke tobacco but quit 20 years ago. He has sedentary lifestyle, he gained 50 pounds in the past 1-1/2-year. He denies being diagnosed with hyperlipidemia or hypothyroidism or diabetes. He denies history of blood clots, including family history of blood clots, no personal cancer history., He did mention that he has bilateral lower extremity swelling left more than right. No autoimmune conditions as well. He also mentioned that he slept for 36 hours recently and did not feel refreshed, he was also falling asleep at work which is very concerning to him. In the ER patient was hypertensive BP 160/80, hypoxic 87% on room air, was placed on nasal cannula 2 L, heart rate initially elevated in the 90s, afebrile. Lab work significant for mild leukocytosis at 12.3, hemoglobin high normal 16.8, platelet count normal, D-dimer elevated 2.43, ABG with normal pH, hypercapnia and hypoxia pCO2 61, pO2 63, hyponatremic 133, normal creatinine and GFR, lactic acid normal, troponin negative. Viral panel negative. EKG showed sinus rhythm, RBBB pattern, no ST elevation. CTA chest was done and showed no evidence of central PE although evaluation was limited for the segmental and subsegmental branches, consider nuclear medicine VQ scan if continued clinical concern. Signs of pulmonary hypertension, cardiomegaly, hepatic steatosis. Abdominal x-ray showed no abnormalities. Patient is being admitted for evaluation of acute hypoxic hypercapnic respiratory failure Patient seen and examined. He expresses that he has slept better on the BiPAP. Awaiting results of TTE. No nausea vomiting reported Objective - Vital Signs Vital signs: Vital Signs Temp 97.8 F 11/10/24 08:41 Pulse 79 11/10/24 13:00 Resp 18 11/10/24 13:00 BP 136/92 11/10/24 13:00 Pulse Ox 96 11/10/24 13:00 FiO2 45 11/10/24 03:41 Intake & Output 11/09/24 11/10/24 11/10/24 18:59 06:59 18:59 Weight 158.757 kg - Exam General: nontoxic, no distress, appears at stated age, morbidly obese Derm: warm, dry Head: atraumatic, normocephalic, symmetric Eyes: EOMI, no lid lag, anicteric sclera, pupils equal round reactive to light ENT: Nose and ears atraumatic Neck: No thyromegaly, supple Mouth: no lip lesion, mucus membranes moist Cardiovascular: S1S2 reg, no murmur, no edema Lungs: clear to auscultation bilateral, no rhonchi, no rales, no wheeze, no accessory muscle use on nasal cannula Abdominal: Exam limited due to body habitus, soft, nontender to palpation, no guarding, no appreciable organomegaly Ext: no gross muscle atrophy, muscle strength muscle strength 5 out of 5 in all 4 extremities, lateral lower extremity pitting edema Neuro: All extremity spontaneously Psych: Alert, oriented, appropriate affect - Labs CBC & Chem 7: 11/10/24 03:13 11/10/24 03:13 Labs: Abnormal Lab Results - Last 24 Hours (Table) 11/09/24 11/09/24 11/09/24 Range/Units 15:38 17:46 17:46 WBC 11.6 H (3.8-10.6) k/uL RBC (4.40-5.60) X 10*6/uL Hct 55.2 H (39.0-53.0) % MCHC (32.0-37.0) g/dL RDW 15.7 H (11.5-15.5) % Plt Count 146 L (150-450) k/uL Neutrophils # 9.3 H (1.3-7.7) k/uL Monocytes # (0.20-1.00) X 10*3/uL ABG pCO2 61 H (35-45) mmHg ABG pO2 63 L (83-108) mmHg ABG HCO3 37 H (21-25) mmol/L ABG Total CO2 39 H (19-24) mmol/L ABG O2 Saturation 91.6 L (94-97) % Sodium 134 L (137-145) mmol/L Chloride 95 L (98-107) mmol/L Carbon Dioxide 32 H (22-30) mmol/L BUN 24 H (9-20) mg/dL Calcium 8.2 L (8.4-10.2) mg/dL 11/10/24 11/10/24 Range/Units 03:13 03:13 WBC 10.78 H (3.8-10.6) k/uL RBC 5.74 H (4.40-5.60) X 10*6/uL Hct 55.1 H (39.0-53.0) % MCHC 29.6 L (32.0-37.0) g/dL RDW 16.9 H (11.5-15.5) % Plt Count 133 L (150-450) k/uL Neutrophils # 8.32 H (1.3-7.7) k/uL Monocytes # 1.09 H (0.20-1.00) X 10*3/uL ABG pCO2 (35-45) mmHg ABG pO2 (83-108) mmHg ABG HCO3 (21-25) mmol/L ABG Total CO2 (19-24) mmol/L ABG O2 Saturation (94-97) % Sodium (137-145) mmol/L Chloride (98-107) mmol/L Carbon Dioxide (22-30) mmol/L BUN (9-20) mg/dL Calcium 8.0 L (8.4-10.2) mg/dL Assessment and Plan Assessment: Acute hypoxic hypercapnic respiratory failure Probable obesity hypoventilation syndrome DVT has been ruled out -Currently at this time the patient is requiring supplemental oxygen. I suspect this may be an degree from possible pulmonary hypertension versus his obesity hypoventilation syndrome. Continue supplemental oxygen to maintain SpO2 greater than 90%. His pCO2 was noted be 61. I am not entirely sure if the patient will be able to be qualified for BiPAP during this hospital stay however I would highly recommend a sleep study outpatient. Elevated BNP -Awaiting results of echocardiogram Time with Patient: Greater than 30
--- NOTE | 2024-11-10 18:44 | CA ---
Transthoracic Echo Report Name: Zain Lisa Age: 49 Gender: M : 1975 Exam Date: 11/10/2024 15:09 Exam Location: [facility] Ht (in): 75 Wt (lb): 350 Ordering Physician: Haven Goddard MD Attending/Referring Phys: Brand Lead Procedure CPT: Indications: eval systolic and diastolic function, pulm hypert Cardiac Hx: Technical Quality: Very technically difficult study Contrast 1: Definity Total Dose (mL): 1 Contrast 2: Total Dose (mL): MEASUREMENTS (Male / Female) Normal Values 2D ECHO LV Diastolic Diameter PLAX 4.9 cm 4.2 - 5.9 / 3.9 - 5.3 cm LV Systolic Diameter PLAX 3.4 cm IVS Diastolic Thickness 1.4 cm 0.6 - 1.0 / 0.6 - 0.9 cm LVPW Diastolic Thickness 1.4 cm 0.6 - 1.0 / 0.6 - 0.9 cm LV Relative Wall Thickness 0.6 LVOT Diameter 2.4 cm Aortic Root Diameter 3.3 cm Ascending Aorta Diameter 3.2 cm DOPPLER AV Peak Velocity 137.9 cm/s AV Peak Gradient 7.6 mmHg AV Mean Velocity 86.6 cm/s AV Mean Gradient 3.6 mmHg AV Velocity Time Integral 21.4 cm LVOT Peak Velocity 96.2 cm/s LVOT Peak Gradient 3.7 mmHg LVOT Velocity Time Integral 14.5 cm LVOT Stroke Volume 68.1 cm??? LVOT Stroke Volume Index 24.5 ml/m??? LVOT Cardiac Index 1790.8 cm???/min???m??? AV Area Cont Eq vti 3.2 cm??? AV Area Cont Eq pk 3.3 cm??? Mitral E Point Velocity 57.4 cm/s Mitral A Point Velocity 54.0 cm/s Mitral E to A Ratio 1.1 MV Deceleration Time 244.1 ms MV E' Velocity 5.8 cm/s Mitral E to MV E' Ratio 9.8 TR Peak Velocity 251.1 cm/s TR Peak Gradient 25.2 mmHg Right Atrial Pressure 20.0 mmHg Pulmonary Artery Systolic Pressu 45.2 mmHg Right Ventricular Systolic Press 45.2 mmHg PV Peak Velocity 115.4 cm/s PV Peak Gradient 5.3 mmHg FINDINGS Left Ventricle Left ventricular ejection fraction is estimated at 55-60 %. Moderately increased septal wall thickness. Left ventricular cavity size normal. No obvious regional wall motion abnormalities. Right Ventricle Right ventricular dilatation with normal function. Moderate pulmonary hypertension. Right Atrium Right atrium not well visualized. Left Atrium Left atrium not well visualized. Mitral Valve Mitral valve not well visualized. No mitral stenosis, regurgitation or prolapse. Aortic Valve Trileaflet aortic valve. No aortic valve stenosis or regurgitation. Tricuspid Valve Tricuspid valve not well visualized. No tricuspid stenosis, regurgitation or prolapse. Pulmonic Valve Pulmonic valve not well visualized. Pericardium No pericardial effusion. Aorta Normal size aortic root and proximal ascending aorta. CONCLUSIONS Technically difficult study for interpretation with poorly visualized endocardium and intracardiac valves Definity was used Normal LV systolic function Poorly visualized intracardiac valves No pericardial effusion Previewed by: Dr. Gallo Carrasco MD (Electronically Signed) Final Date: 10 November 2024 18:43
[2024-11-11 07:28] VITALS: RESP 18
[2024-11-11 10:18] LABS: Basophils # (A) 0.04 X 10*3/uL (0.00-0.10); Basophils % (A) 0.4 %; HCT 55.5 % (39.6-50.0); HGB 16.1 g/dL (13.0-17.0); Lymphocytes # (A) 1.26 X 10*3/uL (0.90-5.00); Lymphocytes % (A) 12.1 %; MCH 28.2 pg (27.0-32.0); MCV 97.2 FL (80.0-97.0); Mean Platelet Volume 10.5 FL (9.5-12.2); Monocytes # (A) 1.12 X 10*3/uL (0.20-1.00); Monocytes % (A) 10.7 %; NRBC Per 100 WBC 0 X 10*3/uL (0.00-0.01); Neutrophils # (A) 7.88 X 10*3/uL (1.80-7.70); Neutrophils % (A) 75.3 %; Platelet Count 137 X 10*3/uL (140-440); RBC 5.71 X 10*6/uL (4.40-5.60); RDW 16.3 % (11.5-14.5); WBC 10.45 X 10*3/uL (4.50-10.00)
[2024-11-11 10:36] LABS: BUN/Creat Ratio 13.73 Ratio (12.00-20.00); Blood Urea Nitrogen 15.1 mg/dL (9.0-27.0); Calcium 7.9 mg/dL (8.7-10.3); Carbon Dioxide 31.9 mmol/L (21.6-31.8); Chloride 100 mmol/L (96-109); Glucose 106 mg/dL (70-110); Potassium 5.1 mmol/L (3.5-5.5); Sodium 141 mmol/L (135-145)
--- NOTE | 2024-11-11 12:25 | P.DS ---
Providers Date of admission: 11/09/24 16:36 Attending physician: Christoph Mejia Consults: 11/09/24 16:12 Consult Physician Urgent Consulting Provider: Robinson Patel Consult Reason/Comments: Hypoxia Do you want consulting provider notified?: Yes Primary care physician: Stated None Hospital Course: Zain is a 49-year-old male with past medical history of obesity. He presented to hospital complaining of shortness of breath. In the ER he was noted to be hypoxic requiring 2 L of oxygen. Viral panel was negative CTA chest that revealed no evidence of PE. CTA did reveal hepatic steatosis. Bilateral lower extremity Dopplers were negative. He was trialed on a dose of IV Lasix. Echocardiogram revealed LVEF of 55 to 60% with RVSP noted to be 45 mmHg. The patient was unable to be weaned off oxygen. He was trialed on hospital BiPAP and he reported that he felt much better and no longer feel fatigued but unfortunately he will need an outpatient sleep study to get him evaluated for a BiPAP machine for his likely central sleep apnea. Assessment: Acute hypoxic hypercapnic respiratory failure Concern for obesity hypoventilation syndrome Elevated D-dimer, CTA negative for central PE Lateral lower extremity edema, DVT ruled out Morbid obesity BMI 43 Leukocytosis Hyponatremia -The patient was unable to be weaned off supplemental oxygen -TTE had revealed LVEF of 55 to 60% with RVSP noted to be 45 mmHg. Continue 2 L of oxygen. Would recommend outpatient sleep study to evaluate for likely central sleep apnea and consideration for obtaining a BiPAP then -Continue 2 L oxygen continuously -Cannabis cessation recommended Elevated blood pressure readings without diagnosis of hypertension -Monitor blood pressure, prior to treatment of blood pressure I would recommend his sleep apnea to be controlled prior Patient Condition at Discharge: Fair Plan - Discharge Summary Discharge Rx Participant: No New Discharge Prescriptions: No Action No Known Home Medications Discharge Medication List No Known Home Medications 11/09/24 [History] Follow up Appointment(s)/Referral(s): Robinson Patel DO [Doctor of Osteopathic Medicine] - 1 Week None,Stated [Primary Care Provider] - 1-2 days Discharge Disposition: HOME SELF-CARE
--- NOTE | 2024-11-11 13:07 | P.PN ---
Subjective Progress Note Date: 11/11/24 Patient is a 49-year-old male without any known medical history and does not take any medications at home. He does not have a primary care provider. Lives in [place]. He presented to the emergency department last night with a chief complaint of constipation with associated abdominal discomfort. States his last normal bowel movement was approximately 2 weeks ago. Associated abdominal tenderness localized to the lower quadrants. Admits intermittent bouts of nausea without emesis. While being triaged in the ED was noted to be hypoxic. SpO2 87% on room air oxygen. He was placed on 2 L/min nasal cannula. A pulmonary consult was placed for this reason. Chest x-ray showing normal cardiac silhouette, film is likely underpenetrated due to patient's body habitus. Patient had elevated D-dimer, CT angio protocol was performed which did not show any filling defects or evidence of pulmonary embolism. There was a dilated pulmonary trunk measuring 4 cm. No acute parenchymal process. Patient also reported unilateral left lower extremity swelling. Venous Doppler of the bilateral lower extremities unremarkable for DVT. CBC: WBC count 11.6, hemoglobin 17.1, hematocrit 55.2, platelets 146. CMP: Sodium 134, potassium 4.8, chloride 95, serum bicarb 32, BUN 24, creatinine 0.99, glucose 86. Troponins 0.02 and 0.018 respectively. NT proBNP was 3670. EKG: Normal sinus rhythm, incomplete RBBB pattern, no acute ischemic changes. Viral screen was negative for influenza, RSV, COVID. ABG drawn in the ED, showing a component hypoxia with likely chronic hypercapnic respiratory failure. The patient was placed on BiPAP earlier with settings 10/5 and FiO2 of 30%. On my initial evaluation, patient remains in the ED. Currently, he is on BiPAP with previous mention settings. Achieving tidal volumes of around 450, rate is nontachypneic. He is awake and alert. Nondistressed. No signs of CO2 narcosis. Patient states that over the last 4 months he has had exertional dyspnea. Carries brief tobacco smoking history, quit smoking over 20 years ago. He continues to smoke occasional marijuana. Denies history of COPD or asthma. Denies coughing. Denies infectious-like symptoms. Denies any chest pain, heart palpitations, orthopnea, PND. Endorses excessive daytime sleepiness. 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 He gets adequate amounts of sleep at night, over 8 hours, and remains tired on awakening. States he recently slept over 36 hours on his day off and still was tired on awakening. He lives alone, but has been told he has severe snoring. He is morbidly obese, with a BMI of 43.7 kg/m. Increased neck circumference. Mallampati score 3. Has never had a sleep study in the past. As stated above, he has noted some increased swelling of his left lower extremity. Denies any history of heart failure. As far as his constipation, he has received a dose of MiraLAX, had small bowel movement earlier. Abdominal tende rness is improved. Current vitals: Afebrile, heart rate 80 bpm, blood pressure 127/81 mmHg, respiratory rate nontachypneic, SpO2 93% on BiPAP The patient is seen today November 11, 2024 in follow-up on the regular medical floor. He is currently resting in bed. He remains on BiPAP 10/5 and 45% FiO2. Chest CT angiogram ruled out pulmonary embolism. Venous Dopplers of the lower extremities ruled out DVT. 60%. No significant valvular abnormalities. White count 10.4. Hemoglobin 16.1. Platelets 137. Sodium 141. Potassium 4.1. Bicarb 32. BUN 15. Creatinine 1.1. Lovenox for DVT prophylaxis. Objective - Vital Signs Vital signs: Vital Signs Temp 97.6 F 11/11/24 07:00 Pulse 85 11/11/24 11:50 Resp 18 11/11/24 07:00 BP 156/85 11/11/24 07:00 Pulse Ox 90 L 11/11/24 11:50 FiO2 45 11/11/24 04:08 Intake & Output 11/10/24 11/11/24 11/11/24 18:59 06:59 18:59 Intake Total 360 Balance 360 Weight 158.757 kg Intake: Oral 360 Other: Voiding Method Toilet Toilet # Voids 2 # Bowel Movements 1 - Exam GENERAL EXAM: Alert, morbidly obese 49-year-old male, on BiPAP, no signs of CO2 narcosis HEAD: Normocephalic and atraumatic EYES: Normal reaction of pupils, equal size. NOSE: Clear with pink turbinates. THROAT: No erythema or exudates. Mallampati score 3. NECK: No masses, no JVD. Increased neck circumference. CHEST: No chest wall deformity. LUNGS: Equal air entry with no crackles, wheeze, rhonchi or dullness. On BiPAP with settings 10/5 and FiO2 30%. CVS: S1 and S2 normal with no audible murmur, regular rhythm. No extra heart sounds ABDOMEN: Obese abdomen, active bowel sounds, no hepatosplenomegaly or masses, no guarding or rigidity. SPINE: No scoliosis or deformity SKIN: No rashes CENTRAL NERVOUS SYSTEM: No focal deficits, tone is normal in all 4 extremities. EXTREMITIES: There is mild nonpitting lower extremity edema bilateral. No clubbing or cyanosis. Peripheral pulses are intact. - Labs CBC & Chem 7: 11/11/24 03:52 11/11/24 03:52 Labs: Abnormal Lab Results - Last 24 Hours (Table) 11/11/24 11/11/24 Range/Units 03:52 03:52 WBC 10.45 H (4.50-10.00) X 10*3/uL RBC 5.71 H (4.40-5.60) X 10*6/uL Hct 55.5 H (39.6-50.0) % MCV 97.2 H (80.0-97.0) FL MCHC 29.0 L (32.0-37.0) g/dL RDW 16.3 H (11.5-14.5) % Plt Count 137 L (140-440) X 10*3/uL Immature Gran # 0.05 H (0.00-0.04) X 10*3/uL Neutrophils # 7.88 H (1.80-7.70) X 10*3/uL Monocytes # 1.12 H (0.20-1.00) X 10*3/uL Carbon Dioxide 31.9 H (21.6-31.8) mmol/L Calcium 7.9 L (8.7-10.3) mg/dL Assessment and Plan Assessment: Acute hypoxemic respiratory failure, likely with a component of chronic hypercapnic respiratory failure; Chest x-ray showing normal cardiac silhouette with interstitial prominence, likely underpenetrated due to patient's body lin bitus. NT proBNP was elevated 3670. Elevated D-dimer, chest CTA did not show any filling defects consistent with pulmonary embolism. Dilated pulmonary artery trunk measuring 4 cm. No acute parenchymal process. Bilateral lower extremity edema, venous doppler of the bilateral lower extremities unremarkable for DVTs Excessive daytime sleepiness Morbid obesity, BMI of 43.7 kg/m, suspect component of obesity hypoventilation syndrome/AUNG Abdominal pain and constipation, KUB x-ray nonspecific, patient was given dose of MiraLAX earlier with small bowel movement Brief history of tobacco use, quitting over 20 years ago Current ongoing marijuana use Plan: The patient was seen and evaluated Currently on BiPAP 10/5 and 45% FiO2 Alternating with oxygen at 2 L/min per nasal cannula Will be checked for possible home oxygen need Recommend testing for suspected obstructive sleep apnea Educated regarding the importance of weight loss Encouraged to obtain a primary care provider I have personally seen and examined the patient, performed the documentation and the assessment and plan as written. Number of minutes spent on the visit: 10 Dictation was produced using [employer] dictation software. Please excuse any grammatical, word or spelling errors. This patient was seen in coordination with the pulmonary/critical care physician, Dr. Patel. He did spend greater than 50% of the time evaluating, examining and developing the plan of care. He agrees to the above HPI, physical exam, assessment and plan of care as dictated by the nurse practitioner.
[2024-11-11 14:43] VITALS: BP 138/89; PULSE 87; TEMP 98.4
== END 2024-11-11 16:43 | disposition home or self-care (01) ==
LOC: EC 10:53 → 6NMEDSUR 16:36
PROVIDERS: ADMIT Student in an Organized Health Care Education/Training Program; ATTEND Student in an Organized Health Care Education/Training Program
DX: J96.02 Acute respiratory failure with hypercapnia (principal); J96.01 Acute respiratory failure with hypoxia; R60.0 Localized edema; R79.1 Abnormal coagulation profile; D72.829 Elevated white blood cell count, unspecified; E66.01 Morbid (severe) obesity due to excess calories; E87.1 Hypo-osmolality and hyponatremia; R03.0 Elevated blood-pressure reading, without diagnosis of hypertension; I45.10 Unspecified right bundle-branch block; K59.00 Constipation, unspecified; Z68.41 Body mass index [BMI] 40.0-44.9, adult
CPT/HCPCS: 96376; 96372 ×2; 96374; 99285; 36415; 94660 ×3; 94640; 36600; 94760; 93005; 93306; 85379; 83880; 80053; 80048 ×3; 84443; 82150; 82805; 83605; 83690; 84484; 85025 ×3; 81003; 83036; 87636; 71046; 74018; 93970; 71275; G0378 ×3; J1650 ×2; Q9957; Q9967; J2470 ×2